=== PATIENT | female | born 1950 | race Caucasian/White ===

== ENCOUNTER 2020-09-14 07:34 | Emergency (ER) | payer OTHER ==
[2020-09-14 07:50] VITALS: TEMP 98.2; BMI 24.1
[2020-09-14] MEDS ORDERED: ACETAMINOPHEN 500 MG TABLET (FP) PO ONE (09:12)
[2020-09-14 09:59] LABS: BASO % 0.6 % (0-2.0); HEMATOCRIT 40.9 % (32.4-45.2); HEMOGLOBIN 13.7 GM/dL (10.7-15.3); LYMPH % 3.5 % (8-40); MCH 31.1 pg (25.7-33.7); MCHC 33.6 g/dl (32.0-36.0); MEAN CELL VOLUME 92.6 fl (80-96); MEAN PLT VOLUME 10.4 fl (7.5-11.1); MONO % 4.6 % (3.8-10.2); NEUT % 91.3 % (42.8-82.8); PLATELET COUNT 118 K/MM3 (134-434); RBC 4.42 M/mm3 (3.60-5.2); RDW 14.1 % (11.6-15.6); WHITE BLOOD COUNT 15.9 K/mm3 (4.0-10.0)
[2020-09-14 10:08] LABS: INR 2.52 (0.83-1.09); PROTHROMBIN TIME (PATIENT) 29.7 SEC (9.7-13.0)
[2020-09-14 10:10] LABS: CALCIUM 9.3 mg/dL (8.5-10.1)
[2020-09-14] MEDS ORDERED: ACETAMINOPHEN 325 MG TABLET (FP) ONE (10:10)
[2020-09-14 10:11] LABS: ALBUMIN 3.6 g/dl (3.4-5.0)
[2020-09-14 10:13] LABS: CREATININE 1.2 mg/dL (0.55-1.3)
[2020-09-14 10:15] LABS: BILIRUBIN,TOTAL 3.1 mg/dL (0.2-1); TOT PROT 6.6 g/dl (6.4-8.2)
[2020-09-14] MEDS ORDERED: SODIUM CHLORIDE 1,000 ML IV STA (11:13)
[2020-09-14] MEDS ORDERED: METOCLOPRAMIDE HCL INJECTION 10 MG/2 ML VIAL IVPB ONE (11:13)
[2020-09-14] MEDS ORDERED: METOCLOPRAMIDE HCL INJECTION 10 MG/2 ML VIAL ONE (11:18)
[2020-09-14 11:49] LABS: ANISOCYTOSIS 1+; MACROCYTOSIS 0; OVALOCYTE 1+; PLATELET ESTIMATE DECREASED
[2020-09-14 12:39] LABS: EPI CELLS 7 /uL (0-25.1); HYALINE CASTS 3 /uL (0-3.1); URINE APPEARANCE CLEAR; URINE BACTERIA 55 /uL (0-1359); URINE BILIRUBIN NEGATIVE (NEGATIVE); URINE COLOR YELLOW; URINE GLUCOSE (UA) NEGATIVE (NEGATIVE); URINE KETONE NEGATIVE (NEGATIVE); URINE LEUK ESTERASE NEGATIVE (NEGATIVE); URINE NITRITE NEGATIVE (NEGATIVE); URINE PROTEIN NEGATIVE (NEGATIVE); URINE RBC 37 /uL (0-23.9); URINE UROBILINOGEN 0.2 mg/dL (0.2-1.0); URINE WBC 9 /uL (0-25.8)
[2020-09-14 13:01] VITALS: BP 111/64; PULSE 70
== END 2020-09-14 14:26 | disposition home or self-care (01) ==
LOC: JER 07:34
PROC: 3E033GC Introduction of Other Therapeutic Substance into Peripheral Vein, Percutaneous Approach (ICD-10-PCS; principal; 2020-09-14)
PROC: 3E0337Z Introduction of Electrolytic and Water Balance Substance into Peripheral Vein, Percutaneous Approach (ICD-10-PCS; 2020-09-14)
DX: G44.209 Tension-type headache, unspecified, not intractable (principal)
CPT/HCPCS: 36415; 70450-TC; 71046-TC-FY; 80053; 81003; 84484; 85025; 85610; 86850; 86900; 86901; 87086; 93005; 93010; 99285-25; C9803; U0003; U0005

== ENCOUNTER 2020-11-20 09:51 | Inpatient (IN) | payer OTHER ==
[2020-11-20 12:15] LABS: BASO % 0.7 % (0-2.0); EOS % 0.1 % (0-4.5); HEMATOCRIT 34.4 % (32.4-45.2); HEMOGLOBIN 11.8 GM/dL (10.7-15.3); MCH 30.9 pg (25.7-33.7); MCHC 34.4 g/dl (32.0-36.0); MEAN CELL VOLUME 89.9 fl (80-96); MEAN PLT VOLUME 9.9 fl (7.5-11.1); MONO % 8.9 % (3.8-10.2); NEUT % 80.3 % (42.8-82.8); PLATELET COUNT 174 10^3/uL (134-434); RBC 3.82 M/mm3 (3.60-5.2); RDW 15.1 % (11.6-15.6); WHITE BLOOD COUNT 12.3 K/mm3 (4.0-10.0)
[2020-11-20 12:23] LABS: INR 2.28 (0.83-1.09); PROTHROMBIN TIME (PATIENT) 26.9 SEC (9.7-13.0)
[2020-11-20 12:25] LABS: ACTIVATED PTT 32.8 SECONDS (25.2-36.5)
[2020-11-20 12:36] LABS: CHLORIDE 91 mmol/L (98-107); SODIUM 126 mmol/L (136-145)
[2020-11-20 12:43] LABS: CALCIUM 8.2 mg/dL (8.5-10.1)
[2020-11-20 12:44] LABS: ALBUMIN 3.6 g/dl (3.4-5.0); ANION GAP 13 MMOL/L (8-16); BLOOD UREA NITROGEN 17.6 mg/dL (7-18); CO2 22 mmol/L (21-32); GLUCOSE,RANDOM 106 mg/dL (74-106)
[2020-11-20 12:47] LABS: BILIRUBIN,TOTAL 1.9 mg/dL (0.2-1); CREATININE 1.1 mg/dL (0.55-1.3); SGOT/AST 22 U/L (15-37); SGPT/ALT 14 U/L (13-61)
[2020-11-20 12:48] LABS: ALK PHOS 28 U/L (45-117); TOT PROT 6.1 g/dl (6.4-8.2)
[2020-11-20 12:59] LABS: ANISOCYTOSIS 0; MACROCYTOSIS 0; PLATELET ESTIMATE NORMAL
[2020-11-20] MEDS ORDERED: POTASSIUM CHLORIDE ORAL LIQUID 20 MEQ/15 ML PO ONE (13:05)
[2020-11-20] MEDS ORDERED: SODIUM CHLORIDE 0.9% 500 ML INFUS.BAG IV ONE (13:05)
[2020-11-20] MEDS ORDERED: POTASSIUM CHLORIDE ORAL LIQUID 20 MEQ/15 ML ONE (13:11)
[2020-11-20 15:49] LABS: URINE APPEARANCE CLEAR; URINE BILIRUBIN NEGATIVE (NEGATIVE); URINE COLOR DK YELLOW; URINE GLUCOSE (UA) TRACE (NEGATIVE); URINE KETONE TRACE (NEGATIVE); URINE LEUK ESTERASE NEGATIVE (NEGATIVE); URINE NITRITE NEGATIVE (NEGATIVE); URINE PROTEIN TRACE (NEGATIVE)
[2020-11-21 02:10] VITALS: BMI 23.1
[2020-11-21 10:04] LABS: ALBUMIN 3.2 g/dl (3.4-5.0); BLOOD UREA NITROGEN 13.6 mg/dL (7-18); CALCIUM 7.9 mg/dL (8.5-10.1)
[2020-11-21 10:09] LABS: CREATININE 0.9 mg/dL (0.55-1.3); TOT PROT 5.4 g/dl (6.4-8.2)
[2020-11-21 10:44] LABS: BILIRUBIN,TOTAL 1.8 mg/dL (0.2-1)
[2020-11-21] MEDS ORDERED: WARFARIN NA 2 MG TABLET PO ONE (11:18)
[2020-11-21] MEDS ORDERED: WARFARIN NA 5 MG TABLET PO ONE (11:33)
[2020-11-21 14:09] LABS: INR 2.82 (0.83-1.09); PROTHROMBIN TIME (PATIENT) 33.6 SEC (9.7-13.0)
[2020-11-21] MEDS: SODIUM CHLORIDE 1,000 ML IV SCH (15:00)
[2020-11-21] MEDS ORDERED: ERTAPENEM SODIUM 1 GM in SODIUM CHLORIDE 50 ML IVPB SCH (16:45)
[2020-11-21] MEDS: WARFARIN NA 5 MG TABLET PO SCH (17:20)
[2020-11-21] MEDS ORDERED: WARFARIN NA 2 MG TABLET PO SCH (18:00)
[2020-11-21] MEDS ORDERED: WARFARIN NA 5 MG TABLET PO SCH (18:00)
[2020-11-21] MEDS: ATORVASTATIN CA 20 MG TABLET (FP) PO SCH (21:59)
[2020-11-22] MEDS ORDERED: WARFARIN NA 2 MG TABLET PO SCH (08:15)
[2020-11-22] MEDS ORDERED: PT OWN MED DRAWER 7, Y5N ONE (09:07)
[2020-11-22 09:08] LABS: INR 3.43 (0.83-1.09)
[2020-11-22 09:24] LABS: ALBUMIN 2.8 g/dl (3.4-5.0); BLOOD UREA NITROGEN 10.7 mg/dL (7-18)
[2020-11-22 09:27] LABS: CREATININE 0.8 mg/dL (0.55-1.3)
[2020-11-22 09:28] LABS: BILIRUBIN,TOTAL 1.4 mg/dL (0.2-1); TOT PROT 4.9 g/dl (6.4-8.2)
[2020-11-22] MEDS: SODIUM CHLORIDE 1,000 ML IV SCH (15:20)
[2020-11-22] MEDS: WARFARIN NA 5 MG TABLET PO SCH (17:12)
[2020-11-22] MEDS: ATORVASTATIN CA 20 MG TABLET (FP) PO SCH (21:53)
[2020-11-23] MEDS: NITROFURANTOIN MACROCRYSTAL 50 MG CAPSULE (FP) PO SCH ×3 (09:10→17:54)
[2020-11-23 10:14] LABS: INR 3.71 (0.83-1.09); PROTHROMBIN TIME (PATIENT) 43.9 SEC (9.7-13.0)
[2020-11-23] MEDS: SODIUM CHLORIDE 1,000 ML IV SCH (17:53)
[2020-11-23] MEDS: ATORVASTATIN CA 20 MG TABLET (FP) PO SCH (21:47)
[2020-11-24] MEDS: NITROFURANTOIN MACROCRYSTAL 50 MG CAPSULE (FP) PO SCH ×3 (00:25→12:13)
[2020-11-24 09:34] VITALS: BP 122/62; PULSE 51; TEMP 97.8
[2020-11-24 11:34] LABS: BASO % 0.6 % (0-2.0); EOS % 1.9 % (0-4.5); HEMATOCRIT 32.2 % (32.4-45.2); HEMOGLOBIN 11.1 GM/dL (10.7-15.3); LYMPH % 10.9 % (8-40); MCH 31.5 pg (25.7-33.7); MCHC 34.5 g/dl (32.0-36.0); MEAN CELL VOLUME 91.4 fl (80-96); MEAN PLT VOLUME 9.3 fl (7.5-11.1); MONO % 8.1 % (3.8-10.2); NEUT % 78.5 % (42.8-82.8); PLATELET COUNT 130 10^3/uL (134-434); RBC 3.52 M/mm3 (3.60-5.2); RDW 15.5 % (11.6-15.6)
[2020-11-24 11:45] LABS: PROTHROMBIN TIME (PATIENT) 35.2 SEC (9.7-13.0)
[2020-11-24 12:13] LABS: ALBUMIN 2.8 g/dl (3.4-5.0); CALCIUM 8.4 mg/dL (8.5-10.1)
[2020-11-24] MEDS: SODIUM CHLORIDE 1,000 ML IV SCH (12:13)
[2020-11-24 12:16] LABS: CREATININE 0.8 mg/dL (0.55-1.3)
[2020-11-24 12:18] LABS: TOT PROT 4.8 g/dl (6.4-8.2)
== END 2020-11-24 16:31 | disposition home or self-care (01) | DRG 640 ==
LOC: JER 09:51 → JERBED 13:07 → J5S 11-21 00:46
PROVIDERS: ADMIT Internal Medicine; ATTEND Internal Medicine
DX: E87.1 Hypo-osmolality and hyponatremia (principal); G93.41 Metabolic encephalopathy; N39.0 Urinary tract infection, site not specified; I48.91 Unspecified atrial fibrillation; D32.9 Benign neoplasm of meninges, unspecified; I10 Essential (primary) hypertension; E78.5 Hyperlipidemia, unspecified; E87.6 Hypokalemia; R31.9 Hematuria, unspecified
CPT/HCPCS: 36415; 70450-TC; 71045-TC-FY; 80053; 81003; 82436; 82550; 82553; 83605; 83930; 83935; 84133; 84300; 84443; 84484; 85025; 85610; 85730; 87040; 87086; 87186; 93005; 93010; 97116-GP; 97161-GP; 99285-25; C9803; U0003; U0005